=== PATIENT | male | born 1975 | race African-American/Black ===

== ENCOUNTER 2022-02-26 13:36 | Emergency (ER) | payer MEDICAID, SELFPAY ==
--- NOTE | ~2022-02-26 | XR_ITS ---
EXAMINATION: XR foot LT min 3V EXAM DATE: 02/26/2022 14:12 INDICATION: Left 1st toe pain x 1 week etiology unknown. TECHNIQUE: Left foot dorsoplantar, lateral and oblique projections obtained and reviewed. There is n o prior study for comparison. FINDINGS: Left metatarsal bones unremarkable. Small posterior calcaneal spur. 1st toe is unremarka ble. There are no bony erosions identified. There are no acute fractures or dislocations identified. There is no subcutaneous gas. The soft tissue is unremarkable. There are no radiopaque foreign rosa dies. IMPRESSION: 1. Unremarkable left foot, 1st toe exam. Reviewed, dictated and finalized at location A.
--- NOTE | 2022-02-26 13:45 | ED.LOWEXIN ---
HPI - Extremity Injury (Lower) General Chief Complaint: Extremity Injury, Lower Stated Complaint: left foot pain Time Seen by Provider: 02/26/22 13:47 Source: patient and RN notes reviewed Mode of arrival: ambulatory Limitations: no limitations History of Present Illness HPI Narrative: 46-year-old male presents to the [facility] with complaints of left great toe pain and decreased range of motion for approximately 1 week. Has a history of congestive heart failure, high blood pressure and high cholesterol. Reports taking his medications daily. Patient does report taking his medications today. Due to being here for work has not been eating appropriately. Denies any headaches, chest pain, blurry vision change in vision. Patient requesting pain medication while he is here. Has not taken anything over the last couple of days. Related Data Home Medications Medication Instructions Recorded Confirmed atorvastatin [Lipitor] 20 mg PO HS 02/26/22 02/26/22 carvedilol [Coreg] 25 mg PO BID 02/26/22 02/26/22 dapagliflozin [Farxiga] 10 mg PO DAILY 02/26/22 02/26/22 furosemide [Lasix] 40 mg PO BID 02/26/22 02/26/22 losartan 100 mg PO DAILY 02/26/22 02/26/22 spironolactone 25 mg PO DAILY 02/26/22 02/26/22 Allergies Allergy/AdvReac Type Severity Reaction Status Date / Time No Known Allergies Allergy Verified 02/26/22 13:55 Review of Systems Review of Systems: All systems reviewed & are unremarkable except as noted in HPI and below Constitutional: Constitutional: Reports no additional constitutional complaints, Denies chills and Denies fever(s) Eyes: Eyes: Reports no additional eye complaints and Denies change in vision ENT: Reports system reviewed and no additional complaints, except as documented Cardiovascular: Cardiovascular: Reports no additional cardiovascular complaints and Denies chest pain Respiratory: Respiratory: Reports no additional respiratory complaints and Denies cough Gastrointestinal: Gastrointestinal: Reports no additional gastrointestinal complaints and Denies abdominal pain Musculoskeletal: Musculoskeletal: Reports as per HPI and Reports arthralgias (left great toe base) Integumentary/Breasts: Skin/Breast: Reports system reviewed and no additional complaints, except as docu Neurologic: Reports system reviewed and no additional complaints, except as documented Psychiatric: Psychiatric: Reports no additional psychiatric complaints Allergic/Immunologic: Allergic/Immunologic: Reports no additional allergic/immunologic complaints PMFSH Past Medical History Medical History High cholesterol Hypertension Comments At the time of my signature, I reviewed and agree with the nursing past medical, surgical, social, and family history. There is no relevant family history pertinent to the patient complaint. Exam Const: General: healthy appearing, no acute distress and alert Nutritional Appearance: well nourished and obese Orientation/consciousness: patient oriented x3 Limitations: no limitations HENMT: Head: normal to inspection Ears: external ears normal Eyes: Pupils: Equal, round and reactive pupils present Neck: Neck: normal visual inspection, no lymphadenopathy and no meningeal signs Chest: Chest palpation & inspection: normal inspection of the chest Resp: Effort & Inspection: normal respiratory effort Auscultation: clear to auscultation bilaterally Cardio: Rate: regular rate Rhythm: regular rhythm Back/Spine/Pelvis: Back: no CVA tenderness Skin: General skin exam: normal color Rashes: no rashes Wounds: no wounds Other: No redness or swelling. No increased warmth. Neuro: General: patient oriented x3, moves all extremities, no meningeal signs and no focal motor deficits Cranial nerves: Yes Equal, round and reactive pupils present Speech: normal speech Gait exam (Neuro): Normal gait present Extrem: General: normal exam except as no
[2022-02-26 13:50] VITALS: BP 171/108; PULSE 93; RESP 16; TEMP 37.2; O2SAT 97
[2022-02-26] MEDS: ACETAMINOPHEN 500 MG TABLET 1000 MG PO (14:46)
[2022-02-26 15:00] VITALS: BP 158/112
== END 2022-02-26 15:00 | disposition home or self-care (01) ==
PROVIDERS: Emergency Provider Nurse Practitioner
DX: M77.8 Other enthesopathies, not elsewhere classified (principal); E78.00 Pure hypercholesterolemia, unspecified; I11.0 Hypertensive heart disease with heart failure; I50.9 Heart failure, unspecified
CPT/HCPCS: 73630; 99203; A9270; G0463